=== PATIENT | male | born 1955 | race Caucasian/White ===

== ENCOUNTER 2017-04-06 22:22 | Observation (INO) ==
[2017-04-07] MEDS ORDERED: Naloxone 0.4 MG/ML INJ IVP PRN (02:36)
[2017-04-07] MEDS ORDERED: Albuterol 2.5 MG/3 ML NEBULIZER IH PRN (02:37)
--- NOTE | 2017-04-07 02:45 | Internal Med History&Physical ---
Date of Encounter: 04/07/17 Time of Encounter: 02:43 Assessment and Plan (1) Weakness Current visit: Yes Status: Acute PT/OT eval no focal deficits, will continue to exercise and monitor closely further management pending above eval (2) Acute bronchitis with COPD Current visit: Yes Status: Acute IV azithromycin, Duonebs therapy pulse ox observe for improvement (3) GERD (gastroesophageal reflux disease) Current visit: Yes Status: Acute PPI Qualifiers: Esophagitis presence: without esophagitis Qualified Code(s): K21.9 - Gastro -esophageal reflux disease without esophagitis (4) Dementia Current visit: Yes Status: Acute Qualifiers: Alzheimer's disease onset: late-onset Qualified Code(s): G30.1 - Alzheimer' s disease with late onset; F02.80 - Dementia in other diseases classified elsewhere without behavioral disturbance; F02.80 - Dementia in other diseases classified elsewhere without behavioral disturbance; F02.80 - Dementia in other diseases classified elsewhere without behavioral disturbance (5) Depression Current visit: Yes Status: Acute Qualifiers: Qualified Code(s): F32.9 - Major depressive disorder, single episode, unspecified Internal Medicine - H&P: HPI Chief complaint: weakness, congested History of present illness: Mr. Loco is a 61 year old male with a history of COPD, dementia who presents as a transfer from [facility] per family request. Chief complaint of weakness that is generalized and increasing congestion. At baseline he has been residing in [facility] for at least the last several years. He continues to be noncompliant and smokes at the shelter. He uses 3 L nasal cannula at baseline. Family reported approximately 1 week history of generalized weakness associated with intermittent confusion while at the the shelter. She fell backwards across the bed this past week. He was initially evaluated at [facility] 2 days ago with negative workup and was sent back to [facility] at the displeasure of his family. Since returning home, he continued to exhibit generalized weakness and had a close fall. Patient returned to [facility] was evaluated with plans to return home to shelter today. However his family was concerned and requested transfer to [place] for comprehensive care. Review of medical records at [facility] indicate: Negative stool occult blood Lactate 0.5 Troponin less than 0.056 Sodium 143, potassium 4.0, creatinine 0.84, total bilirubin 0.2, AST 17, ALP 24 WBC 10.1, platelets 338, hemoglobin 12.3 Rapid flu swab negative EKG personally reviewed with rate 83, right bundle branch block with no prior to compare against - of note patient is not complaining of chest pain ABG performed with pH 7.39, PCO2 77, PO2 79, bicarbonate 46.6 Past Med Surg Social Fam HX - Past Medical History Medical history: COPD, GERD, hypertension, SVT, TIA Psychiatric history: anxiety, depression - Social History Smoking Status: Former smoker Alcohol use: none Drug use: none Internal Medicine - H&P: Meds Aspirin [Lo-Dose Aspirin EC] 81 mg PO DAILY 04/07/17 [History] Bacitracin 1 TP DAILY 04/07/17 [History] Docusate [Colace] 100 mg PO BID 04/07/17 [History] Escitalopram [Lexapro] 10 mg PO HS 04/07/17 [History] Fluticasone/Salmeterol [Advair 250-50 Diskus] 1 each IH BID 04/07/17 [History] Guaifenesin [Mucinex] 600 mg PO Q12HR 04/07/17 [History] Losartan [Cozaar] 50 mg PO DAILY 04/07/17 [History] OLANZapine [Zyprexa] 5 mg PO HS 04/07/17 [History] Oxycodone HCl/Acetaminophen [Percocet 7.5-325 mg Tablet] 1 each PO Q6HR PRN 01/12 [History] Pantoprazole Sodium [Protonix] 40 mg PO HS 04/07/17 [History] Triamcinolone Acet 0.1% CRM [Kenalog] 1 appl TP DAILY PRN 04/07/17 [History] Ventolin Hfa 2 puff IH Q4HR PRN 04/07/17 [History] clonazePAM [Clonazepam] 1 mg PO TID 04/07/17 [History] 3 Allergy/AdvReac Type Severity Reaction Status Date / Time ipratropium [From Atrovent] Allergy unknown Verified 04/07/17 01:45 All Systems PM: A 10-system review of systems was performed and is negative for pertinent findings except as documented above in the HPI. Review of systems: ROS 14 point review of systems reviewed as best as possible given presentation. Pertinent positive or negative as per HPI or otherwise reviewed as negative - Constitutional Vitals: Temp Pulse Resp BP Pulse Ox 100.4 F H 101 16 127/81 94 04/07/17 02:29 04/07/17 02:29 04/07/17 02:29 04/07/17 02:29 04/07/17 02:29 Exam: General - AAO x 3 Psych - Appropriate affect/speech. No agitation Eyes - TOMMY. Eye lids intact. No scleral icterus Neuro - No gross peripheral or central neuro deficits on inspection Heart - Sinus. RRR. S1 and S2 present. No added HS/murmurs appreciated. No elevated JVD appreciated. Lung - Decreased air entry b/l, No crackles, scant wheeze appreciated GI - Soft, non-tender. No hepatosplenomegaly/ascites. BS+ - No CVA/suprapubic tenderness or palpable bladder distension Skin - Intact. No rash/petechiae/ecchymosis. Warm extremities
[2017-04-07 03:57] LABS: Bilirubin,Urine Negative (Negative); Blood,Urine Moderate (Negative); Clarity,Urine Clear (Clear); Color,Urine Yellow (Yellow); Glucose,Urine (UA) Normal (Normal); Ketones,Urine Negative (Negative); Leukocyte Esterase,Urine Negative (Negative); Nitrite,Urine Negative (Negative); Protein,Urine Negative (Neg-Trace); Specific Gravity,Urine 1.005 (1.010-1.025); Urobilinogen,Urine Normal (Normal)
[2017-04-07 04:00] LABS: Bacteria,Urine None Seen per hpf (None-Few); Hyaline Casts,Urine None Seen per lpf (None-Few); RBC,Urine 0-3 per hpf (0-3); Squamous Epithelial Cell,Urine Few per lpf (None-Few); WBC,Urine 0-3 per hpf (0-3)
[2017-04-07] MEDS: Albuterol 2.5 MG/3 ML NEBULIZER IH SCH ×4 (04:06→22:12)
[2017-04-07 04:46] LABS: Hemoglobin 11.8 g/dL (12.9-16.9)
[2017-04-07 04:47] LABS: Basophils % 0.3 %; Hematocrit 40.6 % (37.5-50.1); Immature Granulocytes % 1.7 % (0-4); Lymphocytes # 1.1 K/mcL (0.6-4.6); Lymphocytes % 11.1 %; Mean Corpuscular HGB Conc 29.1 g/dL (31.6-35.5); Mean Corpuscular Hemoglobin 24.5 pg (28.0-33.3); Mean Corpuscular Volume 84.4 fL (83.0-100.0); Mean Platelet Volume 9.2 fL (9.4-12.4); Monocytes # 0.1 K/mcL (0.0-1.3); Monocytes % 1.1 %; Neutrophils # 8.7 K/mcL (1.6-8.9); Platelet Count 356 K/mcL (140-400); Red Blood Count 4.81 M/mcL (4.19-5.50); Red Cell Distribution Width 13.6 % (11.5-14.5); Segmented Neutrophils % 85.8 %
[2017-04-07 04:58] LABS: Adenovirus Not Detected (Not Detect); Bordetella Pertussis Not Detected (Not Detect); Chlamydophila pneumoniae Not Detected (Not Detect); Coronavirus 229E Not Detected (Not Detect); Coronavirus HKU1 Not Detected (Not Detect); Coronavirus NL63 Not Detected (Not Detect); Coronavirus OC43 Not Detected (Not Detect); Human Metapneumovirus Not Detected (Not Detect); Human Rhinovirus/Enterovirus Not Detected (Not Detect); Influenza A Subtype 2009 H1 Not Detected (Not Detect); Influenza A Untypeable Not Detected (Not Detect); Influenza B Not Detected (Not Detect); Mycoplasma pneumoniae Not Detected (Not Detect); Parainfluenza Virus 1 Not Detected (Not Detect); Parainfluenza Virus 2 Not Detected (Not Detect); Parainfluenza Virus 3 Not Detected (Not Detect); Parainfluenza Virus 4 Not Detected (Not Detect); Respiratory Syncytial Virus Not Detected (Not Detect)
[2017-04-07 05:15] LABS: Alanine Aminotransferase 15 Units/L (7-52); Albumin 4.1 g/dL (3.5-5.7); Albumin/Globulin Ratio 1.1 (1.1-2.2); Alkaline Phosphatase 95 Units/L (34-104); Aspartate Amino Transferase 11 Units/L (13-39); BUN/Creatinine Ratio 13 (6-26); Bilirubin,Total 0.3 mg/dL (0.3-1.0); Blood Urea Nitrogen 9 mg/dL (8-23); Calcium 9.7 mg/dL (8.6-10.3); Carbon Dioxide 38 mEq/L (23-29); Chloride 98 mEq/L (98-107); Globulin 3.9 g/dL (2.4-3.5); Glucose 129 mg/dL (70-105); Magnesium 2.4 mg/dL (1.6-2.6); Osmolality,Calculated 296 (280-300); Potassium 4.2 mEq/L (3.5-5.1); Sodium 143 mEq/L (136-145); eGFR For African Americans > 60 (> 60); eGFR For Non-African Americans > 60 (> 60)
[2017-04-07 05:25] LABS: Thyroid Stimulating Hormone 0.146 mcIU/mL (0.340-5.600)
[2017-04-07 05:37] LABS: Platelet Estimate Normal (Normal)
[2017-04-07 05:38] LABS: Hypochromasia Present (Not Present)
[2017-04-07] MEDS: clonazePAM 1 MG TABLET PO PRN ×2 (08:42→15:37)
[2017-04-07] MEDS: *HR* OxyCODONE/APAP 7.5/325 TABLET PO PRN ×3 (08:42→22:01)
[2017-04-07] MEDS: Azithromycin 500 MG in D5% in Water 250 ML IVPB SCH (08:42)
[2017-04-07] MEDS: Aspirin Enteric Coated 81 MG Tablet PO SCH (08:42)
[2017-04-07] MEDS: Budesonide/Formoterol 80/4.5 MDI IH SCH ×2 (10:30→22:12)
--- NOTE | 2017-04-07 13:44 | Event Note ---
Date of Encounter: 04/07/17 Time of Encounter: 13:32 1. Acute bronchitis with COPD: cont IV azithromycin. 2. Weakness: lives at ECF, details unclear but rarely with increasing weakness. PT/OT consult. Supportive care 3. GERD: cont home PPI 4. Dementia: per hx. Baseline mentation unknown. No family at bedside for collateral. Continue supportive care. 5. DVT prophylaxis: Heparin
[2017-04-07] MEDS: *HR* Heparin 5,000 UNIT/ML VIAL SQ SCH ×2 (13:54→22:09)
[2017-04-07] MEDS: OLANZapine 5 MG TAB.RAPDIS PO SCH (20:39)
[2017-04-08] MEDS: Albuterol 2.5 MG/3 ML NEBULIZER IH SCH ×4 (03:15→22:20)
[2017-04-08] MEDS: *HR* Heparin 5,000 UNIT/ML VIAL SQ SCH ×3 (06:02→20:49)
[2017-04-08] MEDS: *HR* OxyCODONE/APAP 7.5/325 TABLET PO PRN ×2 (06:04→12:38)
[2017-04-08] MEDS: Azithromycin 500 MG in D5% in Water 250 ML IVPB SCH (08:09)
[2017-04-08] MEDS: Aspirin Enteric Coated 81 MG Tablet PO SCH (08:10)
[2017-04-08] MEDS: clonazePAM 1 MG TABLET PO PRN (08:12)
[2017-04-08] MEDS: Budesonide/Formoterol 80/4.5 MDI IH SCH ×2 (09:35→22:09)
--- NOTE | 2017-04-08 12:17 | Internal Med Progress Note ---
Date of Encounter: 04/08/17 Time of Encounter: 12:11 - Constitutional Vitals: Temp Pulse Resp BP Pulse Ox 97.7 F 98 20 109/71 97 04/08/17 11:56 04/08/17 11:56 04/08/17 11:56 04/08/17 11:56 04/08/17 11:56 Internal Medicine: Result - Labs CBC & Chem 7: 04/07/17 04:31 04/07/17 04:31 - VTE Documentation of Mechanical Device: Intermittent pneumatic compression device Consult Discharge Plan - Plan Referrals: NONE,PCP [Primary Care Provider] -
[2017-04-08] MEDS ORDERED: Artificial Tears SOLN 15 ML BOTTLE OP PRN (15:33)
[2017-04-08] MEDS: clonazePAM 1 MG TABLET PO SCH ×2 (16:14→20:48)
--- NOTE | 2017-04-08 17:44 | Internal Med Progress Note ---
Date of Encounter: 04/08/17 Time of Encounter: 11:45 - Assessment and plan (1) Near syncope Current Visit: Yes Status: Acute Assessment and plan: niece reports 2 episodes of near syncope at [facility]. OSH head CT non-acute. Etiology unknown at this time. Appears back to baseline. Brain MRI, echo and orthostatics pending (2) Acute bronchitis with COPD Current Visit: Yes Status: Acute Assessment and plan: suspected. Cont Azithromycin (3) Dementia Current Visit: Yes Status: Acute Assessment and plan: per hx. Appears at baseline Qualifiers: Alzheimer's disease onset: late-onset Qualified Code(s): G30.1 - Alzheimer' s disease with late onset; F02.80 - Dementia in other diseases classified elsewhere without behavioral disturbance; F02.80 - Dementia in other diseases classified elsewhere without behavioral disturbance; F02.80 - Dementia in other diseases classified elsewhere without behavioral disturbance (4) DVT prophylaxis Current Visit: Yes Status: Acute Assessment and plan: heparin - Subjective Interval history: Seen and examined at bedside; patient is new to me. Information obtained from chart review and patient report. He is alert and oriented X 4 but forgetful. Says he remembers being confused but not sure of circumstances. No CP, no SOB - Constitutional Vitals: Temp Pulse Resp BP Pulse Ox 98.4 F 97 16 118/73 96 04/08/17 16:09 04/08/17 16:09 04/08/17 16:15 04/08/17 16:15 04/08/17 16:15 General appearance: Present: A&O X 3 - Head Head exam: Present: atraumatic, normocephalic - Eye Eye exam: Present: PERRL, conjuntiva pink, sclera anicteric Pupils: Present: PERRL - Neck Neck exam general surgery: Present: supple, trachea midline. Absent: lymphadenopathy - Respiratory Respiratory exam: Present: CTAB. Absent: accessory muscle use, rales, rhonchi, wheezes - Cardiovascular Cardiovascular exam: Present: RRR, +S1, +S2. Absent: diastolic murmur, gallop, rubs, systolic murmur - GI/Abdominal GI/Abdominal exam: Present: normal bowel sounds, soft, no peritoneal signs. Absent: distended, tenderness - Extremities Exam Extremities exam: Present: warm, radial pulses palpable and symmetrical. Absent : calf tenderness, cyanotic, pedal edema - Neurological Exam Neurological exam: Present: CN II-XII intact, oriented X3, no focal deficits. Absent: pronater drift, facial droop, speech deficit - Skin Skin exam: Present: dry, intact Internal Medicine: Result - Labs CBC & Chem 7: 04/07/17 04:31 04/07/17 04:31 - VTE Documentation of Mechanical Device: Intermittent pneumatic compression device Consult Discharge Plan - Plan Referrals: NONE,PCP [Primary Care Provider] -
[2017-04-08] MEDS: OLANZapine 5 MG TAB.RAPDIS PO SCH (20:49)
[2017-04-09] MEDS: Albuterol 2.5 MG/3 ML NEBULIZER IH SCH ×2 (03:30→11:34)
[2017-04-09] MEDS: clonazePAM 1 MG TABLET PO SCH ×2 (04:47→09:59)
[2017-04-09] MEDS: *HR* Heparin 5,000 UNIT/ML VIAL SQ SCH (04:48)
[2017-04-09] MEDS: *HR* OxyCODONE/APAP 7.5/325 TABLET PO PRN ×2 (04:52→12:56)
[2017-04-09 05:17] LABS: Hematocrit 35.4 % (37.5-50.1); Hemoglobin 10.6 g/dL (12.9-16.9); Mean Corpuscular HGB Conc 29.9 g/dL (31.6-35.5); Mean Corpuscular Hemoglobin 25.1 pg (28.0-33.3); Mean Corpuscular Volume 83.7 fL (83.0-100.0); Mean Platelet Volume 9.4 fL (9.4-12.4); Platelet Count 317 K/mcL (140-400); Red Blood Count 4.23 M/mcL (4.19-5.50); Red Cell Distribution Width 14.3 % (11.5-14.5)
[2017-04-09 05:30] LABS: BUN/Creatinine Ratio 25 (6-26); Blood Urea Nitrogen 15 mg/dL (8-23); Carbon Dioxide 33 mEq/L (23-29); Chloride 104 mEq/L (98-107); Glucose 98 mg/dL (70-105); Osmolality,Calculated 297 (280-300); Potassium 3.8 mEq/L (3.5-5.1); Sodium 143 mEq/L (136-145); eGFR For African Americans > 60 (> 60); eGFR For Non-African Americans > 60 (> 60)
[2017-04-09] MEDS ORDERED: Azithromycin 500 MG VIAL IVPB ONE (07:28)
[2017-04-09] MEDS: Aspirin Enteric Coated 81 MG Tablet PO SCH (07:32)
[2017-04-09] MEDS: Azithromycin 500 MG in D5% in Water 250 ML IVPB SCH (07:34)
[2017-04-09] MEDS ORDERED: Furosemide 20 MG TABLET PO SCH (09:00)
--- NOTE | 2017-04-09 09:06 | Discharge Summary ---
Date of Encounter: 04/09/17 Time of Encounter: 08:50 - Discharge Diagnosis (1) Acute bronchitis with COPD Priority: Primary Status: Acute Comments: Pt states that he feels better today and is breathing better. Continue Azithromycin at ECF to finish course, will be complete on 04/11. Urine strep pneumo and legionella negative. Lungs diminished with faint wheezing in bilateral posterior bases. No distress. Continue 02 at ECF. He is at his baseline use. Pt continues to smoke at ECF. (2) Dementia Priority: Secondary Status: Chronic Comments: Chronic. Patient has returned to baseline. Continue to monitor for safety. Qualifiers: Alzheimer's disease onset: late-onset Qualified Code(s): G30.1 - Alzheimer' s disease with late onset; F02.81 - Dementia in other diseases classified elsewhere with behavioral disturbance; F02.81 - Dementia in other diseases classified elsewhere with behavioral disturbance; F02.81 - Dementia in other diseases classified elsewhere with behavioral disturbance (3) GERD (gastroesophageal reflux disease) Priority: Secondary Status: Chronic Comments: Chronic. Patient denies any symptoms. Continue home medications. Qualifiers: Esophagitis presence: without esophagitis Qualified Code(s): K21.9 - Gastro -esophageal reflux disease without esophagitis (4) Near syncope Priority: Secondary Status: Acute Comments: Family reported 2 episodes of near syncope at F. Most likely due to SOB. Pt with tachycardia and tachypnea on admission, pt also admitted for COPD exacerbation. Pt had head CT at OSH that was negative for acute infarct. Pt has returned to baseline and denies dizziness or lightheadedness, no chest pain or SOB above his normal baseline. Labs are stable and WNL. Echo with LVEF 55-60%, Mildly dilated RV with normal appearing functioning, valves not well visualized. Head CT negative from [facility]. Orthostatic vital signs negative. Continiue to monitor for safety and hydration status, continue to wear 02 at normal home level. (5) Weakness Priority: Secondary Status: Acute Comments: Most likely due to COPD exacerbation and physical deconditioning. Pt was evaluated by PT and OT, recommend PT/OT daily at [facility]. Monitor for safety (6) DVT prophylaxis Priority: Secondary Status: Acute Comments: Heparin SQ (7) Chronic respiratory failure Priority: Secondary Status: Chronic Comments: Pt is at his baseline 02 use, 3L/NC. Qualifiers: Respiratory failure complication: unspecified whether with hypoxia or hypercapnia Qualified Code(s): J96.10 - Chronic respiratory failure, unspecified whether with hypoxia or hypercapnia - Discharge Medications Prescriptions: Azithromycin [Zithromax] 250 mg PO Q24H #3 tablet clonazePAM [Klonopin] 2 mg PO Q6H 1 Days #4 tablet Home Medications: Albuterol Sulfate [Ventolin Hfa] 2 puff IH Q6H PRN 04/07/17 [History] Aspirin [Lo-Dose Aspirin EC] 81 mg PO DAILY 04/07/17 [History] Docusate [Colace] 200 mg PO BID 04/07/17 [History] Escitalopram [Lexapro] 10 mg PO HS 04/07/17 [History] Fluticasone/Salmeterol [Advair 250-50 Diskus] 1 each IH BID 04/07/17 [History] Guaifenesin [Mucinex] 600 mg PO Q12HR 04/07/17 [History] Losartan [Cozaar] 50 mg PO DAILY 04/07/17 [History] OLANZapine [Zyprexa] 5 mg PO HS 04/07/17 [History] Oxycodone HCl/Acetaminophen [Percocet 7.5-325 mg Tablet] 2 tab PO Q6HR PRN 04/07 [History] Triamcinolone Acet 0.1% CRM [Kenalog] 1 appl TP DAILY PRN 04/07/17 [History] Albuterol Neb [Proventil Neb] 2.5 mg IH Q6H PRN 04/08/17 [History] Bisacodyl [Woman's Laxative] 15 mg PO 2XW 04/08/17 [History] Fluticasone Propionate Nasal [Flonase] 1 spr NS DAILY 04/08/17 [History] Furosemide [Lasix] 20 mg PO DAILY 04/08/17 [History] Guaifenesin [Adult Tussin Chest Congestion] 200 mg PO Q6H PRN 04/08/17 [History] Loratadine [Allergy Relief] 10 mg PO DAILY 04/08/17 [History] Metoprolol [Lopressor] 25 mg PO BID 04/08/17 [History] Nystatin Cream [Mycostatin Cream] 1 appl TP BID 04/08/17 [History] Omeprazole [PriLOSEC] 20 mg PO DAILY 04/08/17 [History] Ondansetron HCl [Zofran] 4 mg PO Q6H PRN 04/08/17 [History] Polyvinyl Alcohol [Artificial Tears] 2 drop OP Q4H PRN 04/08/17 [History] Roflumilast [Daliresp] 500 mcg PO DAILY 04/08/17 [History] Azithromycin [Zithromax] 250 mg PO Q24H #3 tablet 04/09/17 [Rx] clonazePAM [Klonopin] 1 mg PO TID PRN 1 Days #3 tablet 04/09/17 [Rx] clonazePAM [Klonopin] 2 mg PO Q6H 1 Days #4 tablet 04/09/17 [Rx] Allergies/Adverse Reactions: 3 Allergy/AdvReac Type Severity Reaction Status Date / Time ipratropium [From Atrovent] Allergy unknown Verified 04/07/17 01:45 Procedures/tests Complete & Pending: Procedures Performed prior 72 hours Category Date Time Status EV limited echocardiogram Routine Y 04/09/17 15:24 Completed Date of admission: 04/07/17 00:15 Primary care physician: PCP NONE Consults: 04/07/17 02:54 Consult to Occupational Therapy [CONS] Routine Comment: Evaluate, develop and implement POC Reason for Consult: ambulate and assess Consult to Physical Therapy [CONS] Routine Comment: Evaluate, develop and implement POC Reason for Consult: ambulate assess for placement need 04/08/17 09:24 Consult to Invasive Line Access Team [CONS] Routine Reason for Consult: IV excess Line Type: EPIV Time Notified: 09:25 Call Completed: Yes Discharging clinician: Skye Merrill Anticipated date of discharge: 04/09/17 - Patient Status Disposition: Transfer SNF Condition: Good Functional capacity at discharge: uses cane/walker Overall status at discharge: patient is progressing back to baseline - Discharge Instructions Follow Up With: NONE,PCP [Primary Care Provider] - - Diet and Activity Activity: as per physical therapy Diet: advance to your usual diet Hospital course: Mr. Loco is a 61 year old male with past medical history of COPD, GERD, dementia, smoking. Presented to the emergency department from detention in [facility] after being discharged from local hospital. Family reports 2 recent episodes of near syncope and increasing weakness and shortness of breath. Imaging was negative for any acute processes including head CT and chest x-ray. The patient has been treated with IV Rocephin for COPD exacerbation, he will continue by mouth Zithromax after discharge. Patient is resting easily on his normal baseline oxygen use of 3 L. He states that he feels considerably better than he did previously. He is alert and awake and answers questions appropriately. He has no leukocytosis or fever, no tachycardia, he is normotensive. All other labs are within normal limits. Patient does have a TSH of 0.146 which is low, he will need to follow up for repeat labs at the [facility] after he is no longer acutely ill. Patient is stable and appropriate for discharge. Time spent discussing smoking cessation with patient: 3 to 10 minutes - Time Spent with Patient Total time spent providing and/or coordinating discharge services: - Constitutional Vitals: Temp Pulse Resp BP Pulse Ox 97.6 F 57 16 116/69 97 04/09/17 07:23 04/09/17 07:29 04/09/17 07:23 04/09/17 07:29 04/09/17 07:23 General appearance: Present: cooperative, A&O X 3, pleasant, no acute distress, answers questions appropriately - Head Head exam: Present: atraumatic, normal inspection, normocephalic - Eye Eye exam: Present: normal appearance, conjuntiva pink, sclera anicteric - Neck Neck exam general surgery: Present: normal inspection, supple, trachea midline. Absent: tenderness - Respiratory Respiratory exam: Present: decreased breath sounds, CTAB. Absent: accessory muscle use, rales, respiratory distress, rhonchi, wheezes - Cardiovascular Cardiovascular exam: Present: RRR, +S1, +S2. Absent: diastolic murmur, gallop, rubs, systolic murmur - GI/Abdominal GI/Abdominal exam: Present: normal bowel sounds, soft. Absent: distended, hepatomegaly, tenderness - Extremities Exam Extremities exam: Present: normal capillary refill, normal inspection, warm, radial pulses palpable and symmetrical. Absent: calf tenderness, cyanotic, pedal edema - Neurological Exam Neurological exam: Present: alert, oriented X3, no focal deficits. Absent: facial droop, speech deficit - Skin Skin exam: Present: dry, intact, normal color, warm. Absent: rash - VTE Documentation of Mechanical Device: Intermittent pneumatic compression device
[2017-04-09] MEDS ORDERED: GuaiFENesin Liq 200 MG/10 ML UDC PO PRN (09:10)
[2017-04-09] MEDS ORDERED: Triamcinolone Acet 0.1% CRM 15 GM TUBE TP PRN (09:10)
[2017-04-09] MEDS ORDERED: Fluticasone Propionate Nasal 50 MCG/SPRAY BOTTLE NS SCH (09:15)
[2017-04-09] MEDS ORDERED: Loratadine 10 MG TABLET PO SCH (09:15)
[2017-04-09] MEDS ORDERED: (Roflumilast [Daliresp] 500 MCG) PO SCH (09:15)
[2017-04-09] MEDS ORDERED: Nystatin Cream 15 GM TUBE TP SCH (09:15)
[2017-04-09 11:06] VITALS: BP 108/69
[2017-04-09] MEDS: Budesonide/Formoterol 80/4.5 MDI IH SCH (11:34)
--- NOTE | 2017-04-09 13:21 | Physician Discharge Referral ---
ExtendedCare Referral Info Transfer To: [facility] Provider in Charge after Transfer: PCP Institutional Level of Care: Intermediate - Diagnosis (1) Acute bronchitis with COPD Priority: Primary Status: Acute (2) Dementia Priority: Secondary Status: Chronic (3) GERD (gastroesophageal reflux disease) Priority: Secondary Status: Chronic (4) Near syncope Priority: Secondary Status: Acute (5) Weakness Priority: Secondary Status: Acute (6) DVT prophylaxis Priority: Secondary Status: Acute (7) Chronic respiratory failure Status: Chronic - Transfer Medications Prescriptions: Azithromycin [Zithromax] 250 mg PO Q24H #3 tablet clonazePAM [Klonopin] 2 mg PO Q6H 1 Days #4 tablet Home Medications: Albuterol Sulfate [Ventolin Hfa] 2 puff IH Q6H PRN 04/07/17 [History] Aspirin [Lo-Dose Aspirin EC] 81 mg PO DAILY 04/07/17 [History] Docusate [Colace] 200 mg PO BID 04/07/17 [History] Escitalopram [Lexapro] 10 mg PO HS 04/07/17 [History] Fluticasone/Salmeterol [Advair 250-50 Diskus] 1 each IH BID 04/07/17 [History] Guaifenesin [Mucinex] 600 mg PO Q12HR 04/07/17 [History] Losartan [Cozaar] 50 mg PO DAILY 04/07/17 [History] OLANZapine [Zyprexa] 5 mg PO HS 04/07/17 [History] Oxycodone HCl/Acetaminophen [Percocet 7.5-325 mg Tablet] 2 tab PO Q6HR PRN 04/07 [History] Triamcinolone Acet 0.1% CRM [Kenalog] 1 appl TP DAILY PRN 04/07/17 [History] Albuterol Neb [Proventil Neb] 2.5 mg IH Q6H PRN 04/08/17 [History] Bisacodyl [Woman's Laxative] 15 mg PO 2XW 04/08/17 [History] Fluticasone Propionate Nasal [Flonase] 1 spr NS DAILY 04/08/17 [History] Furosemide [Lasix] 20 mg PO DAILY 04/08/17 [History] Guaifenesin [Adult Tussin Chest Congestion] 200 mg PO Q6H PRN 04/08/17 [History] Loratadine [Allergy Relief] 10 mg PO DAILY 04/08/17 [History] Metoprolol [Lopressor] 25 mg PO BID 04/08/17 [History] Nystatin Cream [Mycostatin Cream] 1 appl TP BID 04/08/17 [History] Omeprazole [PriLOSEC] 20 mg PO DAILY 04/08/17 [History] Ondansetron HCl [Zofran] 4 mg PO Q6H PRN 04/08/17 [History] Polyvinyl Alcohol [Artificial Tears] 2 drop OP Q4H PRN 04/08/17 [History] Roflumilast [Daliresp] 500 mcg PO DAILY 04/08/17 [History] Azithromycin [Zithromax] 250 mg PO Q24H #3 tablet 04/09/17 [Rx] clonazePAM [Klonopin] 1 mg PO TID PRN 1 Days #3 tablet 04/09/17 [Rx] clonazePAM [Klonopin] 2 mg PO Q6H 1 Days #4 tablet 04/09/17 [Rx] Allergies/Adverse Reactions: 3 Allergy/AdvReac Type Severity Reaction Status Date / Time ipratropium [From Atrovent] Allergy unknown Verified 04/07/17 01:45 - Respiratory Orders Oxygen / L per min (3L/min via n/c.) Smoking Cessation: Smoking cessation has been advised. For more information, call the [place] Tobacco Quit Line at 4-283-XPMD-NOW. - Lab Orders Lab Orders: CBC, U/A, Fil[address] 17, CXR yearly - Ancillary Orders May use pressure relief devices daily prn, May go on SUMMER w/family/respon green party w /meds at nurse discretion PRN, May consult with Dentist, Cement Loader, Administrative Project Coordinator PRN - Advance Directives Code Status: Full Code - Mobility Orders Chair, Ambulate - Rehabiliation Orders Rehab Potential: Fair Rehab Orders: ROM Exercises, Evaluation for Physical Therapy, Evaluation for Occupational Therapy - Treatments Skin tear care topically daily PRN per policy, May check for fecal impaction rectally daily PRN, Fleet enema rectally every other day PRN cleansing purposes - Diet Orders Regular CERTIFICATION: I certify that the transfer of the above named patient to an Extended Care Facility is necessary for the continuing treatment of the diagnosis listed. The above information is true and accurate reflection of patient's current condition. Confidential - Redisclosure prohibited without a patient's written consent.
== END 2017-04-09 14:16 ==
LOC: 3BNU
PROVIDERS: ADMIT Internal Medicine Hematology & Oncology; ATTEND Registered Nurse

== ENCOUNTER 2019-05-07 13:23 | Inpatient (IN) ==
[~2019-05-07 13:23] MED LIST: Aminoglycoside Consult 1 EACH MC ONE
[2019-05-07] MEDS ORDERED: Naloxone 0.4 MG/ML INJ IVP PRN (17:05)
[2019-05-07] MEDS ORDERED: Albuterol 2.5 MG/3 ML NEBULIZER IH PRN (17:12)
[2019-05-07 17:19] LABS: ABG Base Excess 14 mEq/L (-2 to 3); ABG HCO3 45 mEq/L (21-27); ABG Oxygen Saturation 97 % (95-98); ABG PCO2 95 mmHg (35-45); ABG PH 7.28 pH Units (7.32-7.45); ABG PO2 107 mmHg (85-104); ABG TCO2 48 mEq/L (20-26)
[2019-05-07] MEDS ORDERED: 0.9 % Sodium Chloride 1,000 ML IV ONE (17:31)
[2019-05-07 18:05] LABS: Basophils % 0.3 %
[2019-05-07 18:06] LABS: Hematocrit 42.2 % (37.5-50.1); Hemoglobin 11.8 g/dL (12.9-16.9); Immature Granulocytes % 2.5 % (0-4); Lymphocytes # 0.2 K/mcL (0.6-4.6); Lymphocytes % 1.9 %; Mean Corpuscular Hemoglobin 25.4 pg (28.0-33.3); Mean Corpuscular Volume 90.8 fL (83.0-100.0); Monocytes # 1.4 K/mcL (0.0-1.3); Monocytes % 13.5 %; Neutrophils # 8.5 K/mcL (1.6-8.9); Platelet Count 226 K/mcL (140-400); Red Blood Count 4.65 M/mcL (4.19-5.50); Red Cell Distribution Width 16.3 % (11.5-14.5); Segmented Neutrophils % 81.8 %; White Blood Count 10.4 K/mcL (4.3-11.1)
[2019-05-07 19:01] LABS: Anisocytosis 1+ (Not Present); Hypochromasia Present (Not Present)
[2019-05-07 19:02] LABS: Platelet Estimate Normal (Normal); Stomatocytes 2+ (Not Present)
[2019-05-07] MEDS: Albuterol 2.5 MG/3 ML NEBULIZER IH SCH (19:56)
[2019-05-07 20:50] LABS: ABG Base Excess 15 mEq/L (-2 to 3); ABG HCO3 46 mEq/L (21-27); ABG Oxygen Saturation 88 % (95-98); ABG PCO2 90 mmHg (35-45); ABG PH 7.32 pH Units (7.32-7.45); ABG PO2 63 mmHg (85-104); ABG TCO2 48 mEq/L (20-26); Blood Gas Modality AVAPS; Blood Gas VT 550 cc
[2019-05-07] MEDS: Gabapentin 300 MG CAPSULE PO SCH (20:52)
[2019-05-07] MEDS: Metoprolol XL (24 HR) Succ 25 MG TAB.ER.24H PO SCH (20:52)
[2019-05-07] MEDS: *HR* Heparin 5,000 UNIT/ML VIAL SQ SCH (20:52)
[2019-05-07] MEDS: traZODone 50 MG TABLET PO PRN (21:57)
[2019-05-07] MEDS: clonazePAM 1 MG TABLET PO SCH (22:13)
[2019-05-07] MEDS: OLANZapine 10 MG TAB.RAPDIS PO SCH (22:13)
[2019-05-07] MEDS: Acetaminophen 325 MG TABLET PO PRN (22:33)
[2019-05-07] MEDS: Budesonide/Formoterol 160/4.5 1 PUFF INH IH SCH (22:47)
[2019-05-07] MEDS: Piperacillin/Tazobactam 3.375 GM in 0.9 % Sodium Chloride Mini Bag 100 ML IVPB SCH (23:59)
[2019-05-08] MEDS: Albuterol 2.5 MG/3 ML NEBULIZER IH SCH ×2 (00:46→03:46)
[2019-05-08] MEDS ORDERED: *HR* Metoprolol 5 MG/5 ML VIAL IVP ONE ×3 (03:59→05:20)
[2019-05-08 04:44] LABS: ABG Base Excess 18 mEq/L (-2 to 3); ABG HCO3 49 mEq/L (21-27); ABG Oxygen Saturation 88 % (95-98); ABG PCO2 92 mmHg (35-45); ABG PH 7.34 pH Units (7.32-7.45); ABG PO2 64 mmHg (85-104); ABG TCO2 > 50 mEq/L (20-26)
[2019-05-08] MEDS: *HR* Heparin 5,000 UNIT/ML VIAL SQ SCH ×3 (05:28→20:37)
[2019-05-08] MEDS ORDERED: MethylPREDNISolone 40 MG/ML VIAL IVP SCH (06:00)
[2019-05-08 07:17] LABS: Hemoglobin 11.7 g/dL (12.9-16.9); Immature Granulocytes % 1.7 % (0-4); Red Cell Distribution Width 16.5 % (11.5-14.5)
[2019-05-08 07:18] LABS: Alanine Aminotransferase 69 Units/L (7-52); Albumin 3.3 g/dL (3.5-5.7); Albumin/Globulin Ratio 1.3 (1.1-2.2); Alkaline Phosphatase 56 Units/L (34-104); Aspartate Amino Transferase 36 Units/L (13-39); BUN/Creatinine Ratio 27 (6-26); Bilirubin,Total 0.3 mg/dL (0.3-1.0); Blood Urea Nitrogen 16 mg/dL (8-23); Calcium 8.7 mg/dL (8.6-10.3); Carbon Dioxide 41 mEq/L (23-29); Chloride 96 mEq/L (98-107); Globulin 2.5 g/dL (2.4-3.5); Glucose 94 mg/dL (70-105); Osmolality,Calculated 291 (280-300); Potassium 4.3 mEq/L (3.5-5.1); Sodium 140 mEq/L (136-145); Total Protein 5.8 g/dL (6.4-8.9); eGFR For African Americans > 60 (> 60); eGFR For Non-African Americans > 60 (> 60)
[2019-05-08 07:19] LABS: Basophils % 0.2 %; Hematocrit 41.3 % (37.5-50.1); Immature Platelets 2.6 % (1.1-6.1); Lymphocytes # 0.5 K/mcL (0.6-4.6); Lymphocytes % 5.6 %; Mean Corpuscular HGB Conc 28.3 g/dL (31.6-35.5); Mean Corpuscular Hemoglobin 24.8 pg (28.0-33.3); Mean Corpuscular Volume 87.5 fL (83.0-100.0); Mean Platelet Volume 9.7 fL (9.4-12.4); Monocytes # 1.1 K/mcL (0.0-1.3); Monocytes % 12.2 %; Neutrophils # 7.2 K/mcL (1.6-8.9); Platelet Count 198 K/mcL (140-400); Red Blood Count 4.72 M/mcL (4.19-5.50); Segmented Neutrophils % 80.3 %
[2019-05-08 07:53] LABS: Anisocytosis 1+ (Not Present); Hypochromasia Present (Not Present); Platelet Estimate Normal (Normal)
[2019-05-08] MEDS: Gabapentin 300 MG CAPSULE PO SCH ×3 (08:17→20:38)
[2019-05-08] MEDS: clonazePAM 1 MG TABLET PO SCH ×5 (08:17→21:01)
[2019-05-08] MEDS: Piperacillin/Tazobactam 3.375 GM in 0.9 % Sodium Chloride Mini Bag 100 ML IVPB SCH ×2 (08:17→15:52)
[2019-05-08] MEDS: Metoprolol XL (24 HR) Succ 25 MG TAB.ER.24H PO SCH (08:17)
[2019-05-08] MEDS ORDERED: predniSONE 20 MG TABLET PO SCH (09:00)
[2019-05-08] MEDS ORDERED: levoFLOXacin 750 MG/150 ML 750 MG/150 ML BAG IVPB SCH (09:00)
[2019-05-08] MEDS: Budesonide/Formoterol 160/4.5 1 PUFF INH IH SCH ×2 (09:03→21:51)
[2019-05-08] MEDS: methylPREDNISolone 125 MG/2 ML VIAL IVP SCH ×2 (10:32→15:52)
[2019-05-08 10:53] LABS: ABG Base Excess 18 mEq/L (-2 to 3); ABG HCO3 49 mEq/L (21-27); ABG Oxygen Saturation 95 % (95-98); ABG PCO2 94 mmHg (35-45); ABG PH 7.32 pH Units (7.32-7.45); ABG PO2 87 mmHg (85-104); ABG TCO2 > 50 mEq/L (20-26)
[2019-05-08] MEDS: Levalbuterol Neb 1.25 MG/3 ML IH SCH ×3 (11:26→21:51)
[2019-05-08] MEDS ORDERED: OLANZapine 10 MG VIAL IM ONE (13:30)
[2019-05-08] MEDS: OLANZapine 10 MG TAB.RAPDIS PO SCH (20:38)
[2019-05-09] MEDS: methylPREDNISolone 125 MG/2 ML VIAL IVP SCH ×4 (00:05→23:10)
[2019-05-09] MEDS: Piperacillin/Tazobactam 3.375 GM in 0.9 % Sodium Chloride Mini Bag 100 ML IVPB SCH ×5 (00:07→23:10)
[2019-05-09] MEDS: Levalbuterol Neb 1.25 MG/3 ML IH SCH ×3 (03:29→21:44)
[2019-05-09 04:46] LABS: ABG Base Excess 21 mEq/L (-2 to 3); ABG HCO3 54 mEq/L (21-27); ABG Oxygen Saturation 83 % (95-98); ABG PCO2 111 mmHg (35-45); ABG PO2 59 mmHg (85-104); ABG TCO2 > 50 mEq/L (20-26); Blood Gas VT 600 cc
[2019-05-09 05:30] LABS: ABG Base Excess 18 mEq/L (-2 to 3); ABG HCO3 49 mEq/L (21-27); ABG Oxygen Saturation 96 % (95-98); ABG PCO2 98 mmHg (35-45); ABG PH 7.31 pH Units (7.32-7.45); ABG PO2 94 mmHg (85-104); ABG TCO2 > 50 mEq/L (20-26); Blood Gas VT 600 cc
[2019-05-09] MEDS: *HR* Heparin 5,000 UNIT/ML VIAL SQ SCH ×3 (05:52→20:07)
[2019-05-09] MEDS ORDERED: Piperacillin/Tazobactam 3.375 GM VIAL ONE (08:05)
[2019-05-09] MEDS ORDERED: Metoprolol XL (24 HR) Succ 25 MG TAB.ER.24H PO ONE (08:05)
[2019-05-09] MEDS ORDERED: Gabapentin 300 MG CAPSULE ONE ×2 (08:05→15:00)
[2019-05-09] MEDS ORDERED: methylPREDNISolone 125 MG/2 ML VIAL ONE (08:05)
[2019-05-09] MEDS ORDERED: 0.9 % Sodium Chloride (Mini-Bag +) 100 ML IVBAG ONE (08:05)
[2019-05-09 13:52] LABS: ABG Base Excess 16 mEq/L (-2 to 3); ABG HCO3 46 mEq/L (21-27); ABG Oxygen Saturation 98 % (95-98); ABG PCO2 87 mmHg (35-45); ABG PH 7.33 pH Units (7.32-7.45); ABG PO2 120 mmHg (85-104); ABG TCO2 49 mEq/L (20-26); Blood Gas VT 600 cc
[2019-05-09 14:41] LABS: Hemoglobin 11.1 g/dL (12.9-16.9)
[2019-05-09 14:42] LABS: Basophils % 0.3 %; Hematocrit 40.8 % (37.5-50.1); Immature Granulocytes % 1.3 % (0-4); Lymphocytes # 0.3 K/mcL (0.6-4.6); Lymphocytes % 6.3 %; Mean Corpuscular HGB Conc 27.2 g/dL (31.6-35.5); Mean Corpuscular Hemoglobin 24.6 pg (28.0-33.3); Mean Corpuscular Volume 90.3 fL (83.0-100.0); Mean Platelet Volume 9.3 fL (9.4-12.4); Monocytes # 0.3 K/mcL (0.0-1.3); Monocytes % 8.5 %; Platelet Count 204 K/mcL (140-400); Red Blood Count 4.52 M/mcL (4.19-5.50); Red Cell Distribution Width 15.4 % (11.5-14.5); Segmented Neutrophils % 83.6 %
[2019-05-09] MEDS ORDERED: *HR* Heparin 5,000 UNIT/ML VIAL ONE (15:00)
[2019-05-09] MEDS ORDERED: clonazePAM 1 MG TABLET ONE (15:00)
[2019-05-09] MEDS ORDERED: Levalbuterol Neb 1.25 MG/3 ML ONE (15:00)
[2019-05-09 16:28] LABS: Neutrophils # 3.3 K/mcL (1.6-8.9)
[2019-05-09 16:29] LABS: Basophilic Stippling 1+ (Not Present); Hypochromasia Present (Not Present); Platelet Estimate Normal (Normal)
[2019-05-09] MEDS: Budesonide/Formoterol 160/4.5 1 PUFF INH IH SCH ×2 (16:44→21:44)
[2019-05-09] MEDS: clonazePAM 1 MG TABLET PO SCH ×4 (19:37→20:07)
[2019-05-09] MEDS: Gabapentin 300 MG CAPSULE PO SCH ×3 (19:39→20:07)
[2019-05-09] MEDS: Metoprolol XL (24 HR) Succ 25 MG TAB.ER.24H PO SCH (19:41)
[2019-05-09] MEDS: OLANZapine 10 MG TAB.RAPDIS PO SCH (20:07)
[2019-05-09] MEDS: traZODone 50 MG TABLET PO PRN (20:07)
[2019-05-09] MEDS: Acetaminophen 325 MG TABLET PO PRN (20:07)
[2019-05-09] MEDS ORDERED: Benzonatate 100 MG CAPSULE PO ONE (22:47)
[2019-05-10 02:45] LABS: Albumin 3.1 g/dL (3.5-5.7); Albumin/Globulin Ratio 1.2 (1.1-2.2); Aspartate Amino Transferase 30 Units/L (13-39); Bilirubin,Total 0.3 mg/dL (0.3-1.0); eGFR For African Americans > 60 (> 60); eGFR For Non-African Americans > 60 (> 60)
[2019-05-10 02:59] LABS: Chloride 93 mEq/L (98-107); Potassium 4.1 mEq/L (3.5-5.1); Sodium 144 mEq/L (136-145)
[2019-05-10 03:01] LABS: BUN/Creatinine Ratio 36 (6-26); Blood Urea Nitrogen 22 mg/dL (8-23); Carbon Dioxide > 45 mEq/L (23-29)
[2019-05-10 03:02] LABS: Alkaline Phosphatase 49 Units/L (34-104); Calcium 9.3 mg/dL (8.6-10.3); Glucose 138 mg/dL (70-105); Osmolality,Calculated 304 (280-300)
[2019-05-10 03:03] LABS: Alanine Aminotransferase 64 Units/L (7-52); Globulin 2.6 g/dL (2.4-3.5); Total Protein 5.7 g/dL (6.4-8.9)
[2019-05-10] MEDS: Levalbuterol Neb 1.25 MG/3 ML IH SCH ×4 (03:52→22:00)
[2019-05-10 04:42] LABS: Alanine Aminotransferase 50 Units/L (7-52); Albumin 2.9 g/dL (3.5-5.7); Albumin/Globulin Ratio 1.3 (1.1-2.2); Alkaline Phosphatase 42 Units/L (34-104); Aspartate Amino Transferase 20 Units/L (13-39); BUN/Creatinine Ratio 41 (6-26); Bilirubin,Total 0.3 mg/dL (0.3-1.0); Blood Urea Nitrogen 25 mg/dL (8-23); Calcium 9.1 mg/dL (8.6-10.3); Carbon Dioxide > 45 mEq/L (23-29); Chloride 96 mEq/L (98-107); Globulin 2.3 g/dL (2.4-3.5); Glucose 145 mg/dL (70-105); Magnesium 2.8 mg/dL (1.6-2.6); Osmolality,Calculated 303 (280-300); Potassium 4.1 mEq/L (3.5-5.1); Sodium 143 mEq/L (136-145); Total Protein 5.2 g/dL (6.4-8.9); Troponin I < 0.03 ng/mL (< 0.04); eGFR For African Americans > 60 (> 60); eGFR For Non-African Americans > 60 (> 60)
[2019-05-10 04:46] LABS: Mean Platelet Volume 9.3 fL (9.4-12.4)
[2019-05-10 04:47] LABS: Basophils % 0.2 %; Hematocrit 38.6 % (37.5-50.1); Hemoglobin 10.8 g/dL (12.9-16.9); Immature Granulocytes % 0.6 % (0-4); Lymphocytes # 0.3 K/mcL (0.6-4.6); Lymphocytes % 6.2 %; Mean Corpuscular Volume 89.4 fL (83.0-100.0); Monocytes # 0.4 K/mcL (0.0-1.3); Monocytes % 7.4 %; Neutrophils # 4.4 K/mcL (1.6-8.9); Platelet Count 199 K/mcL (140-400); Red Blood Count 4.32 M/mcL (4.19-5.50); Red Cell Distribution Width 15.2 % (11.5-14.5); Segmented Neutrophils % 85.6 %; White Blood Count 5.1 K/mcL (4.3-11.1)
[2019-05-10 05:27] LABS: Hypochromasia Present (Not Present); Platelet Estimate Decreased (Normal)
[2019-05-10] MEDS: *HR* Heparin 5,000 UNIT/ML VIAL SQ SCH ×3 (05:46→19:53)
[2019-05-10] MEDS ORDERED: clonazePAM 1 MG TABLET PO PRN (07:43)
[2019-05-10] MEDS: Metoprolol XL (24 HR) Succ 25 MG TAB.ER.24H PO SCH (08:00)
[2019-05-10] MEDS: Gabapentin 300 MG CAPSULE PO SCH ×3 (09:00→19:53)
[2019-05-10] MEDS ORDERED: DilTIAZem CD (24hr) 180 MG CAP.ER.24H PO SCH (09:00)
[2019-05-10] MEDS ORDERED: Metoprolol XL (24 HR) Succ 25 MG TAB.ER.24H PO SCH (09:11)
[2019-05-10] MEDS: methylPREDNISolone 125 MG/2 ML VIAL IVP SCH ×3 (09:13→23:56)
[2019-05-10] MEDS: Piperacillin/Tazobactam 3.375 GM in 0.9 % Sodium Chloride Mini Bag 100 ML IVPB SCH ×3 (09:15→23:55)
[2019-05-10] MEDS: Budesonide/Formoterol 160/4.5 1 PUFF INH IH SCH ×2 (10:15→22:00)
[2019-05-10] MEDS ORDERED: Naloxone 0.4 MG/ML INJ IVP PRN (11:19)
[2019-05-10] MEDS ORDERED: DilTIAZem CD (24hr) 180 MG CAP.ER.24H PO ONE (12:47)
[2019-05-10] MEDS ORDERED: Metoprolol XL (24 HR) Succ 25 MG TAB.ER.24H PO ONE (12:48)
[2019-05-10] MEDS: Acetaminophen 325 MG TABLET PO PRN ×2 (16:57→22:59)
[2019-05-10] MEDS: OLANZapine 5 MG TAB.RAPDIS PO SCH (19:53)
[2019-05-10] MEDS ORDERED: OLANZapine 5 MG TAB.RAPDIS PO SCH (21:00)
[2019-05-10] MEDS: clonazePAM 1 MG TABLET PO PRN (22:49)
[2019-05-11] MEDS: traZODone 50 MG TABLET PO PRN (00:32)
[2019-05-11] MEDS ORDERED: Ondansetron 4 MG/2 ML VIAL IVP ONE (02:43)
[2019-05-11] MEDS: Levalbuterol Neb 1.25 MG/3 ML IH SCH ×2 (03:14→10:34)
[2019-05-11] MEDS: Acetaminophen 325 MG TABLET PO PRN (05:33)
[2019-05-11] MEDS: *HR* Heparin 5,000 UNIT/ML VIAL SQ SCH ×3 (05:34→20:04)
[2019-05-11] MEDS: clonazePAM 1 MG TABLET PO PRN ×2 (08:08→15:25)
[2019-05-11] MEDS: methylPREDNISolone 125 MG/2 ML VIAL IVP SCH (08:08)
[2019-05-11] MEDS: DilTIAZem CD (24hr) 180 MG CAP.ER.24H PO SCH (08:08)
[2019-05-11] MEDS: Piperacillin/Tazobactam 3.375 GM in 0.9 % Sodium Chloride Mini Bag 100 ML IVPB SCH (08:09)
[2019-05-11] MEDS: Gabapentin 300 MG CAPSULE PO SCH ×3 (08:09→20:03)
[2019-05-11] MEDS: Metoprolol XL (24 HR) Succ 25 MG TAB.ER.24H PO SCH (08:09)
[2019-05-11 09:07] LABS: Hematocrit 38.6 % (37.5-50.1); Mean Corpuscular HGB Conc 28.5 g/dL (31.6-35.5); Mean Corpuscular Hemoglobin 24.6 pg (28.0-33.3); Mean Corpuscular Volume 86.4 fL (83.0-100.0); Mean Platelet Volume 9.2 fL (9.4-12.4); Platelet Count 237 K/mcL (140-400); Red Blood Count 4.47 M/mcL (4.19-5.50); Red Cell Distribution Width 15.8 % (11.5-14.5); White Blood Count 7.3 K/mcL (4.3-11.1)
[2019-05-11 09:28] LABS: Lymphocytes # 0.7 K/mcL (0.6-4.6); Monocytes # 0.3 K/mcL (0.0-1.3); Neutrophils # 6.3 K/mcL (1.6-8.9); Reactive Lymphocytes Present (Not Present); Smudge Cells Present (Not Present)
[2019-05-11 09:29] LABS: Platelet Estimate Normal (Normal); Stomatocytes 1+ (Not Present)
[2019-05-11 10:08] LABS: BUN/Creatinine Ratio 41 (6-26); Blood Urea Nitrogen 28 mg/dL (8-23); Calcium 8.9 mg/dL (8.6-10.3); Carbon Dioxide > 45 mEq/L (23-29); Chloride 94 mEq/L (98-107); Glucose 139 mg/dL (70-105); Magnesium 2.7 mg/dL (1.6-2.6); Osmolality,Calculated 310 (280-300); Phosphorous 3.1 mg/dL (2.7-4.5); Potassium 4.4 mEq/L (3.5-5.1); Sodium 146 mEq/L (136-145); eGFR For African Americans > 60 (> 60); eGFR For Non-African Americans > 60 (> 60)
[2019-05-11] MEDS: Budesonide/Formoterol 160/4.5 1 PUFF INH IH SCH (10:35)
[2019-05-11 13:53] LABS: VBG HCO3 51 mEq/L (21-27); VBG PCO2 80 mmHg (41-51); VBG PH 7.41 pH Units (7.32-7.42); VBG PO2 168 mmHg (25-50)
[2019-05-11] MEDS: Levalbuterol Neb 0.63 MG/3 ML IH SCH ×2 (15:47→21:42)
[2019-05-11] MEDS: Azithromycin 500 MG in 0.9 % Sodium Chloride 250 ML IVPB SCH (19:10)
[2019-05-11] MEDS: OLANZapine 5 MG TAB.RAPDIS PO SCH (20:03)
[2019-05-11] MEDS: Budesonide Neb 0.5 MG/2 ML IH SCH (21:42)
[2019-05-12] MEDS: Levalbuterol Neb 0.63 MG/3 ML IH SCH ×4 (03:44→22:18)
[2019-05-12] MEDS: *HR* Heparin 5,000 UNIT/ML VIAL SQ SCH ×3 (05:34→20:51)
[2019-05-12 06:00] LABS: Mean Platelet Volume 9.5 fL (9.4-12.4)
[2019-05-12 06:01] LABS: Basophils % 0.3 %; Hematocrit 35.7 % (37.5-50.1); Hemoglobin 10.3 g/dL (12.9-16.9); Lymphocytes # 0.7 K/mcL (0.6-4.6); Lymphocytes % 12.1 %; Mean Corpuscular HGB Conc 28.9 g/dL (31.6-35.5); Mean Corpuscular Hemoglobin 25.2 pg (28.0-33.3); Mean Corpuscular Volume 87.5 fL (83.0-100.0); Monocytes # 0.7 K/mcL (0.0-1.3); Monocytes % 11.1 %; Neutrophils # 4.6 K/mcL (1.6-8.9); Platelet Count 191 K/mcL (140-400); Red Blood Count 4.08 M/mcL (4.19-5.50); Red Cell Distribution Width 15.5 % (11.5-14.5); Segmented Neutrophils % 75.5 %; White Blood Count 6.1 K/mcL (4.3-11.1)
[2019-05-12 06:25] LABS: BUN/Creatinine Ratio 55 (6-26); Blood Urea Nitrogen 29 mg/dL (8-23); Calcium 8.6 mg/dL (8.6-10.3); Carbon Dioxide > 45 mEq/L (23-29); Chloride 103 mEq/L (98-107); Glucose 126 mg/dL (70-105); Magnesium 2.6 mg/dL (1.6-2.6); Osmolality,Calculated 301 (280-300); Potassium 4.7 mEq/L (3.5-5.1); Sodium 142 mEq/L (136-145); eGFR For African Americans > 60 (> 60); eGFR For Non-African Americans > 60 (> 60)
[2019-05-12 06:34] LABS: Thyroid Stimulating Hormone 0.038 mcIU/mL (0.340-5.600); Triiodothyronine (T3) Free 2.57 pg/mL (2.50-3.90)
[2019-05-12] MEDS: predniSONE 20 MG TABLET PO SCH (08:25)
[2019-05-12] MEDS: Gabapentin 300 MG CAPSULE PO SCH ×3 (08:25→20:36)
[2019-05-12] MEDS: clonazePAM 1 MG TABLET PO PRN ×2 (08:46→18:10)
[2019-05-12] MEDS: DilTIAZem CD (24hr) 180 MG CAP.ER.24H PO SCH (09:06)
[2019-05-12] MEDS: Metoprolol XL (24 HR) Succ 25 MG TAB.ER.24H PO SCH (09:06)
[2019-05-12] MEDS: Budesonide Neb 0.5 MG/2 ML IH SCH ×2 (10:03→22:18)
[2019-05-12] MEDS: Azithromycin 500 MG in 0.9 % Sodium Chloride 250 ML IVPB SCH (18:03)
[2019-05-12] MEDS: Acetaminophen 325 MG TABLET PO PRN (18:10)
[2019-05-12] MEDS: OLANZapine 5 MG TAB.RAPDIS PO SCH (20:36)
[2019-05-12] MEDS: *HR* OxyCODONE Immed Rel 5 MG TABLET PO PRN (20:51)
[2019-05-13] MEDS: Levalbuterol Neb 0.63 MG/3 ML IH SCH ×4 (03:44→21:26)
[2019-05-13 04:56] LABS: Basophils % 0.5 %; Red Cell Distribution Width 15.3 % (11.5-14.5)
[2019-05-13 04:58] LABS: Hematocrit 39.6 % (37.5-50.1); Hemoglobin 10.7 g/dL (12.9-16.9); Immature Granulocytes % 1.9 % (0-4); Lymphocytes # 0.8 K/mcL (0.6-4.6); Lymphocytes % 18.3 %; Mean Corpuscular Hemoglobin 24.4 pg (28.0-33.3); Mean Corpuscular Volume 90.4 fL (83.0-100.0); Mean Platelet Volume 9.3 fL (9.4-12.4); Monocytes # 0.5 K/mcL (0.0-1.3); Monocytes % 10.8 %; Neutrophils # 2.9 K/mcL (1.6-8.9); Platelet Count 196 K/mcL (140-400); Red Blood Count 4.38 M/mcL (4.19-5.50); Segmented Neutrophils % 68.5 %; White Blood Count 4.2 K/mcL (4.3-11.1)
[2019-05-13 05:20] LABS: BUN/Creatinine Ratio 40 (6-26); Blood Urea Nitrogen 25 mg/dL (8-23); Calcium 8.6 mg/dL (8.6-10.3); Carbon Dioxide > 45 mEq/L (23-29); Chloride 98 mEq/L (98-107); Glucose 132 mg/dL (70-105); Magnesium 2.4 mg/dL (1.6-2.6); Osmolality,Calculated 306 (280-300); Potassium 4.2 mEq/L (3.5-5.1); Sodium 145 mEq/L (136-145); eGFR For African Americans > 60 (> 60); eGFR For Non-African Americans > 60 (> 60)
[2019-05-13 05:23] LABS: Hypochromasia Present (Not Present); Platelet Estimate Normal (Normal); Reactive Lymphocytes Present (Not Present)
[2019-05-13] MEDS: *HR* Heparin 5,000 UNIT/ML VIAL SQ SCH ×3 (05:25→20:33)
[2019-05-13] MEDS: *HR* OxyCODONE Immed Rel 5 MG TABLET PO PRN ×2 (05:28→14:34)
[2019-05-13] MEDS: Gabapentin 300 MG CAPSULE PO SCH ×3 (08:20→20:32)
[2019-05-13] MEDS: acetaZOLAMIDE 250 MG TABLET PO SCH (08:20)
[2019-05-13] MEDS: predniSONE 20 MG TABLET PO SCH (08:20)
[2019-05-13] MEDS: DilTIAZem CD (24hr) 180 MG CAP.ER.24H PO SCH (08:21)
[2019-05-13] MEDS: Metoprolol XL (24 HR) Succ 25 MG TAB.ER.24H PO SCH (08:21)
[2019-05-13] MEDS: Budesonide Neb 0.5 MG/2 ML IH SCH ×2 (10:22→21:26)
[2019-05-13] MEDS: Piperacillin/Tazobactam 3.375 GM in 0.9 % Sodium Chloride Mini Bag 100 ML IVPB SCH ×2 (14:34→20:32)
[2019-05-13] MEDS: Azithromycin 250 MG TABLET PO SCH (14:34)
[2019-05-13] MEDS ORDERED: Perflutren Lipid Microsphere 1.3 ML in 0.9 % Sodium Chloride 8.7 ML IVP ONE (17:16)
[2019-05-13] MEDS: Acetaminophen 325 MG TABLET PO PRN (20:31)
[2019-05-13] MEDS: OLANZapine 5 MG TAB.RAPDIS PO SCH (20:31)
[2019-05-14] MEDS: Levalbuterol Neb 0.63 MG/3 ML IH SCH ×4 (03:22→22:07)
[2019-05-14 05:42] LABS: Red Cell Distribution Width 14.9 % (11.5-14.5)
[2019-05-14 05:44] LABS: Hematocrit 41.3 % (37.5-50.1); Hemoglobin 11.6 g/dL (12.9-16.9); Mean Corpuscular HGB Conc 28.1 g/dL (31.6-35.5); Mean Corpuscular Hemoglobin 25.1 pg (28.0-33.3); Mean Corpuscular Volume 89.2 fL (83.0-100.0); Mean Platelet Volume 9.4 fL (9.4-12.4); Platelet Count 215 K/mcL (140-400); Red Blood Count 4.63 M/mcL (4.19-5.50); White Blood Count 5.7 K/mcL (4.3-11.1)
[2019-05-14 05:45] LABS: VBG HCO3 35 mEq/L (21-27); VBG PCO2 73 mmHg (41-51); VBG PH 7.29 pH Units (7.32-7.42); VBG PO2 136 mmHg (25-50)
[2019-05-14 06:04] LABS: BUN/Creatinine Ratio 33 (6-26); Blood Urea Nitrogen 18 mg/dL (8-23); Calcium 9.1 mg/dL (8.6-10.3); Carbon Dioxide 35 mEq/L (23-29); Chloride 103 mEq/L (98-107); Glucose 121 mg/dL (70-105); Osmolality,Calculated 293 (280-300); Potassium 4.4 mEq/L (3.5-5.1); Sodium 140 mEq/L (136-145); eGFR For African Americans > 60 (> 60); eGFR For Non-African Americans > 60 (> 60)
[2019-05-14] MEDS: Acetaminophen 325 MG TABLET PO PRN ×2 (06:15→21:35)
[2019-05-14] MEDS: *HR* Heparin 5,000 UNIT/ML VIAL SQ SCH ×3 (06:17→21:36)
[2019-05-14] MEDS: Piperacillin/Tazobactam 3.375 GM in 0.9 % Sodium Chloride Mini Bag 100 ML IVPB SCH ×3 (06:18→21:31)
[2019-05-14] MEDS: predniSONE 20 MG TABLET PO SCH (09:26)
[2019-05-14] MEDS: acetaZOLAMIDE 250 MG TABLET PO SCH (09:26)
[2019-05-14] MEDS: Gabapentin 300 MG CAPSULE PO SCH ×3 (09:27→21:31)
[2019-05-14] MEDS: Metoprolol XL (24 HR) Succ 25 MG TAB.ER.24H PO SCH (09:27)
[2019-05-14] MEDS: DilTIAZem CD (24hr) 180 MG CAP.ER.24H PO SCH (09:27)
[2019-05-14] MEDS: Azithromycin 250 MG TABLET PO SCH (09:27)
[2019-05-14] MEDS: Budesonide Neb 0.5 MG/2 ML IH SCH ×2 (09:45→22:07)
[2019-05-14] MEDS: Benzonatate 100 MG CAPSULE PO PRN (19:02)
[2019-05-14] MEDS: OLANZapine 5 MG TAB.RAPDIS PO SCH (21:31)
[2019-05-14] MEDS: traZODone 50 MG TABLET PO PRN (21:35)
[2019-05-15] MEDS: Levalbuterol Neb 0.63 MG/3 ML IH SCH ×2 (03:57→10:06)
[2019-05-15] MEDS: Benzonatate 100 MG CAPSULE PO PRN (05:09)
[2019-05-15] MEDS: Piperacillin/Tazobactam 3.375 GM in 0.9 % Sodium Chloride Mini Bag 100 ML IVPB SCH ×2 (05:10→13:26)
[2019-05-15] MEDS: *HR* Heparin 5,000 UNIT/ML VIAL SQ SCH (05:14)
[2019-05-15 05:33] LABS: VBG HCO3 32 mEq/L (21-27); VBG PCO2 62 mmHg (41-51); VBG PH 7.33 pH Units (7.32-7.42); VBG PO2 191 mmHg (25-50)
[2019-05-15 05:34] LABS: Mean Platelet Volume 9.9 fL (9.4-12.4); Red Cell Distribution Width 15.1 % (11.5-14.5)
[2019-05-15 05:35] LABS: Hematocrit 44.3 % (37.5-50.1); Hemoglobin 12.8 g/dL (12.9-16.9); Mean Corpuscular HGB Conc 28.9 g/dL (31.6-35.5); Mean Corpuscular Hemoglobin 25.2 pg (28.0-33.3); Mean Corpuscular Volume 87.4 fL (83.0-100.0); Platelet Count 292 K/mcL (140-400); Red Blood Count 5.07 M/mcL (4.19-5.50); White Blood Count 8.9 K/mcL (4.3-11.1)
[2019-05-15 05:45] LABS: BUN/Creatinine Ratio 30 (6-26); Blood Urea Nitrogen 21 mg/dL (8-23); Calcium 9.2 mg/dL (8.6-10.3); Carbon Dioxide 33 mEq/L (23-29); Chloride 105 mEq/L (98-107); Glucose 120 mg/dL (70-105); Osmolality,Calculated 288 (280-300); Potassium 4.5 mEq/L (3.5-5.1); Sodium 137 mEq/L (136-145); eGFR For African Americans > 60 (> 60); eGFR For Non-African Americans > 60 (> 60)
[2019-05-15] MEDS: predniSONE 20 MG TABLET PO SCH (09:47)
[2019-05-15] MEDS: acetaZOLAMIDE 250 MG TABLET PO SCH (09:47)
[2019-05-15] MEDS: Metoprolol XL (24 HR) Succ 25 MG TAB.ER.24H PO SCH (09:47)
[2019-05-15] MEDS: Gabapentin 300 MG CAPSULE PO SCH (09:47)
[2019-05-15] MEDS: Acetaminophen 325 MG TABLET PO PRN (09:47)
[2019-05-15] MEDS: DilTIAZem CD (24hr) 180 MG CAP.ER.24H PO SCH (09:47)
[2019-05-15] MEDS: Budesonide Neb 0.5 MG/2 ML IH SCH (10:07)
[2019-05-15 11:30] VITALS: BP 124/80
== END 2019-05-15 13:56 | DRG 193 ==
LOC: ICNU → SUATTDRO 17:05 → 2ANU 05-10 16:36
PROVIDERS: ADMIT Pediatrics; ATTEND Internal Medicine

== ENCOUNTER 2021-07-23 03:01 | Inpatient (IN) ==
[2021-07-23] MEDS ORDERED: MOM Conc 10 ML UD.LIQ PO PRN (08:34)
[2021-07-23] MEDS ORDERED: *HR* Heparin 5,000 UNIT/ML VIAL IVP ONE (08:34)
[2021-07-23] MEDS ORDERED: *HR* Heparin 5,000 UNIT/ML VIAL IVP PRN (08:34)
[2021-07-23] MEDS ORDERED: Naloxone 0.4 MG/ML INJ IVP PRN (08:34)
[2021-07-23] MEDS ORDERED: Ondansetron 4 MG/2 ML VIAL IVP PRN (08:34)
[2021-07-23] MEDS ORDERED: Perflutren Lipid Microsphere 1.3 ML in 0.9 % Sodium Chloride 8.7 ML IVP PRN (08:39)
[2021-07-23] MEDS: Ipratropium/Albuterol Neb 3 ML IH SCH ×5 (09:27→23:38)
[2021-07-23 09:37] LABS: Hematocrit 38.8 % (37.5-50.1); Hemoglobin 11.4 g/dL (12.9-16.9); Mean Corpuscular HGB Conc 29.4 g/dL (31.6-35.5); Mean Corpuscular Hemoglobin 24.7 pg (28.0-33.3); Mean Platelet Volume 9.5 fL (9.4-12.4); Platelet Count 327 K/mcL (140-400); Red Blood Count 4.62 M/mcL (4.19-5.50); Red Cell Distribution Width 15.5 % (11.5-14.5); White Blood Count 19.5 K/mcL (4.3-11.1)
[2021-07-23 09:44] LABS: INR 1.3; Prothrombin Time 14.1 Seconds (9.4-12.1)
[2021-07-23 09:47] LABS: Activated Partial Thrombo Time 32.3 Seconds (26.0-36.0)
[2021-07-23 09:49] LABS: ABG Base Excess 10 mEq/L (-2 to 3); ABG HCO3 39 mEq/L (21-27); ABG Oxygen Saturation 98 % (95-98); ABG PCO2 74 mmHg (35-45); ABG PH 7.33 pH Units (7.32-7.45); ABG PO2 108 mmHg (85-104); ABG TCO2 41 mEq/L (20-26)
[2021-07-23 09:55] LABS: Magnesium 2.4 mg/dL (1.6-2.6); Phosphorous 3.5 mg/dL (2.7-4.5)
[2021-07-23] MEDS: Heparin 25,000UNIT/250ML 1/2NS 25,000 UNIT/250 ML IV.SOLN IVC SCH (10:02)
[2021-07-23] MEDS ORDERED: Furosemide 40 MG/4 ML VIAL IVP ONE (10:06)
[2021-07-23 10:12] LABS: BUN/Creatinine Ratio 33 (6-26); Blood Urea Nitrogen 20 mg/dL (8-23); Calcium 9.3 mg/dL (8.6-10.3); Carbon Dioxide 40 mEq/L (23-29); Chloride 96 mEq/L (98-107); Glucose 137 mg/dL (70-105); Osmolality,Calculated 293 (280-300); Potassium 4.4 mEq/L (3.5-5.1); Sodium 139 mEq/L (136-145); eGFR For African Americans > 60 (> 60); eGFR For Non-African Americans > 60 (> 60)
[2021-07-23 10:20] LABS: Lymphocytes # 1.2 K/mcL (0.6-4.6); Monocytes # 0.8 K/mcL (0.0-1.3); Neutrophils # 17.2 K/mcL (1.6-8.9); Platelet Estimate Normal (Normal)
[2021-07-23] MEDS: levoFLOXacin 750 MG/150 ML 750 MG/150 ML BAG IVPB SCH (10:26)
[2021-07-23] MEDS: GuaiFENesin/Dextromethorphan TABLET PO SCH ×2 (10:28→21:15)
[2021-07-23] MEDS: MethylPREDNISolone 40 MG/ML VIAL IVP SCH ×3 (10:30→23:12)
[2021-07-23 12:57] LABS: ABG Base Excess 12 mEq/L (-2 to 3); ABG HCO3 40 mEq/L (21-27); ABG Oxygen Saturation 95 % (95-98); ABG PCO2 65 mmHg (35-45); ABG PO2 78 mmHg (85-104); ABG TCO2 42 mEq/L (20-26); Blood Gas VT 450 cc
[2021-07-23 16:05] LABS: Adenovirus Not Detected (Not Detect); Coronavirus 229E Not Detected (Not Detect); Coronavirus HKU1 Not Detected (Not Detect); Coronavirus NL63 Not Detected (Not Detect); Coronavirus OC43 Not Detected (Not Detect); Human Metapneumovirus Not Detected (Not Detect); Human Rhinovirus/Enterovirus Not Detected (Not Detect); SARS-CoV-2 Not Detected (Not Detect)
[2021-07-23 16:11] LABS: Bordetella Pertussis Not Detected (Not Detect); Chlamydophila pneumoniae Not Detected (Not Detect); Influenza A Subtype 2009 H1 Not Detected (Not Detect); Influenza B Not Detected (Not Detect); Mycoplasma pneumoniae Not Detected (Not Detect); Parainfluenza Virus 1 Not Detected (Not Detect); Parainfluenza Virus 2 Not Detected (Not Detect); Parainfluenza Virus 3 Not Detected (Not Detect); Parainfluenza Virus 4 Not Detected (Not Detect); Respiratory Syncytial Virus Not Detected (Not Detect)
[2021-07-23] MEDS: Melatonin 3 MG TABLET PO PRN (21:15)
[2021-07-23] MEDS: *HR* Heparin 5,000 UNIT/ML VIAL IVP PRN (23:11)
[2021-07-24 03:22] LABS: Estimated Average Glucose 123 mg/dl; Hemoglobin A1C 5.9 %
[2021-07-24] MEDS: Ipratropium/Albuterol Neb 3 ML IH SCH ×6 (03:48→23:26)
[2021-07-24] MEDS ORDERED: Simethicone 80 MG TAB.CHEW PO PRN (07:50)
[2021-07-24 07:59] LABS: ABG Base Excess 14 mEq/L (-2 to 3); ABG HCO3 42 mEq/L (21-27); ABG Oxygen Saturation 100 % (95-98); ABG PCO2 64 mmHg (35-45); ABG PH 7.42 pH Units (7.32-7.45); ABG PO2 204 mmHg (85-104); ABG TCO2 44 mEq/L (20-26)
[2021-07-24] MEDS: DilTIAZem CD (24hr) 180 MG CAP.ER.24H PO SCH (08:32)
[2021-07-24] MEDS: GuaiFENesin/Dextromethorphan TABLET PO SCH ×2 (08:33→20:25)
[2021-07-24] MEDS: clonazePAM 1 MG TABLET PO SCH ×4 (08:33→20:24)
[2021-07-24] MEDS: Aspirin 81 MG TAB.CHEW PO SCH (08:33)
[2021-07-24] MEDS: MethylPREDNISolone 40 MG/ML VIAL IVP SCH ×3 (08:37→23:59)
[2021-07-24] MEDS: levoFLOXacin 750 MG/150 ML 750 MG/150 ML BAG IVPB SCH (08:37)
[2021-07-24] MEDS ORDERED: Furosemide 20 MG TABLET PO SCH (09:00)
[2021-07-24] MEDS ORDERED: Vancomycin 1,500 MG/265 ML IV.SOLN IVPB ONE (09:00)
[2021-07-24 09:12] LABS: Hematocrit 40.1 % (37.5-50.1); Hemoglobin 12.2 g/dL (12.9-16.9); Mean Corpuscular HGB Conc 30.4 g/dL (31.6-35.5); Mean Corpuscular Hemoglobin 24.9 pg (28.0-33.3); Red Blood Count 4.89 M/mcL (4.19-5.50); Red Cell Distribution Width 15.4 % (11.5-14.5); White Blood Count 15.2 K/mcL (4.3-11.1)
[2021-07-24 09:13] LABS: Basophils # 0.1 K/mcL (0.0-0.2); Basophils % 0.5 %; Eosinophils % 0.1 %; Immature Granulocytes % 3.5 % (0-4); Lymphocytes # 1.1 K/mcL (0.6-4.6); Lymphocytes % 7.3 %; Monocytes # 1.3 K/mcL (0.0-1.3); Monocytes % 8.5 %; Neutrophils # 12.2 K/mcL (1.6-8.9); Platelet Count 378 K/mcL (140-400); Segmented Neutrophils % 80.1 %
[2021-07-24] MEDS: Heparin 25,000UNIT/250ML 1/2NS 25,000 UNIT/250 ML IV.SOLN IVC SCH (09:21)
[2021-07-24] MEDS: Roflumilast [Daliresp] 500 MCG Tablet PO SCH (09:22)
[2021-07-24 09:37] LABS: BUN/Creatinine Ratio 43 (6-26); Blood Urea Nitrogen 30 mg/dL (8-23); Calcium 9.9 mg/dL (8.6-10.3); Carbon Dioxide 41 mEq/L (23-29); Chloride 92 mEq/L (98-107); Glucose 142 mg/dL (70-105); Magnesium 2.4 mg/dL (1.6-2.6); Osmolality,Calculated 299 (280-300); Phosphorous 3.4 mg/dL (2.7-4.5); Potassium 3.8 mEq/L (3.5-5.1); Sodium 140 mEq/L (136-145); eGFR For African Americans > 60 (> 60); eGFR For Non-African Americans > 60 (> 60)
[2021-07-24] MEDS: Budesonide/Formoterol 80/4.5 1 PUFF INH IH SCH ×2 (11:20→20:31)
[2021-07-24] MEDS: *HR* Heparin 5,000 UNIT/ML VIAL IVP PRN (13:36)
[2021-07-24] MEDS ORDERED: 0.9 % Sodium Chloride 1,000 ML IVC SCH (14:00)
[2021-07-24] MEDS: Vancomycin 1,500 MG/265 ML IV.SOLN IVPB SCH (20:29)
[2021-07-25] MEDS: Heparin 25,000UNIT/250ML 1/2NS 25,000 UNIT/250 ML IV.SOLN IVC SCH ×2 (00:01→20:50)
[2021-07-25] MEDS ORDERED: *HR* LORazepam 2 MG/ML VIAL IVP ONE (03:53)
[2021-07-25] MEDS: Ipratropium/Albuterol Neb 3 ML IH SCH ×6 (03:58→23:55)
[2021-07-25 04:35] LABS: Basophils % 0.3 %; Hematocrit 37.5 % (37.5-50.1); Hemoglobin 11.2 g/dL (12.9-16.9); Immature Granulocytes % 2.6 % (0-4); Lymphocytes # 0.7 K/mcL (0.6-4.6); Mean Corpuscular HGB Conc 29.9 g/dL (31.6-35.5); Mean Corpuscular Hemoglobin 24.5 pg (28.0-33.3); Mean Corpuscular Volume 81.9 fL (83.0-100.0); Mean Platelet Volume 10.5 fL (9.4-12.4); Monocytes # 0.9 K/mcL (0.0-1.3); Monocytes % 8.4 %; Neutrophils # 8.6 K/mcL (1.6-8.9); Platelet Count 307 K/mcL (140-400); Red Blood Count 4.58 M/mcL (4.19-5.50); Red Cell Distribution Width 15.5 % (11.5-14.5); Segmented Neutrophils % 81.7 %; White Blood Count 10.6 K/mcL (4.3-11.1)
[2021-07-25 04:54] LABS: BUN/Creatinine Ratio 37 (6-26); Blood Urea Nitrogen 22 mg/dL (8-23); Calcium 9.2 mg/dL (8.6-10.3); Carbon Dioxide 37 mEq/L (23-29); Chloride 97 mEq/L (98-107); Glucose 131 mg/dL (70-105); Magnesium 2.3 mg/dL (1.6-2.6); Osmolality,Calculated 293 (280-300); Phosphorous 3.2 mg/dL (2.7-4.5); Sodium 139 mEq/L (136-145); eGFR For African Americans > 60 (> 60); eGFR For Non-African Americans > 60 (> 60)
[2021-07-25] MEDS: Budesonide/Formoterol 80/4.5 1 PUFF INH IH SCH ×2 (07:22→20:02)
[2021-07-25] MEDS: levoFLOXacin 750 MG/150 ML 750 MG/150 ML BAG IVPB SCH (08:24)
[2021-07-25] MEDS: DilTIAZem CD (24hr) 180 MG CAP.ER.24H PO SCH (08:25)
[2021-07-25] MEDS: GuaiFENesin/Dextromethorphan TABLET PO SCH ×2 (08:25→21:33)
[2021-07-25] MEDS: MethylPREDNISolone 40 MG/ML VIAL IVP SCH ×2 (08:25→21:33)
[2021-07-25] MEDS: clonazePAM 1 MG TABLET PO SCH ×4 (08:25→21:34)
[2021-07-25] MEDS: Aspirin 81 MG TAB.CHEW PO SCH (08:26)
[2021-07-25] MEDS: Roflumilast [Daliresp] 500 MCG Tablet PO SCH (08:27)
[2021-07-25] MEDS: Vancomycin 1,500 MG/265 ML IV.SOLN IVPB SCH (10:14)
[2021-07-25] MEDS: Apixaban 5 MG TABLET PO SCH (21:33)
[2021-07-25] MEDS: Doxycycline 100 MG CAPSULE PO SCH (21:34)
[2021-07-26] MEDS: Ipratropium/Albuterol Neb 3 ML IH SCH ×3 (04:23→10:56)
[2021-07-26 06:04] LABS: BUN/Creatinine Ratio 36 (6-26); Blood Urea Nitrogen 22 mg/dL (8-23); Calcium 9.5 mg/dL (8.6-10.3); Carbon Dioxide 37 mEq/L (23-29); Chloride 98 mEq/L (98-107); Glucose 140 mg/dL (70-105); Magnesium 2.4 mg/dL (1.6-2.6); Osmolality,Calculated 292 (280-300); Phosphorous 3.5 mg/dL (2.7-4.5); Potassium 4.3 mEq/L (3.5-5.1); Sodium 138 mEq/L (136-145); eGFR For African Americans > 60 (> 60); eGFR For Non-African Americans > 60 (> 60)
[2021-07-26] MEDS: Budesonide/Formoterol 80/4.5 1 PUFF INH IH SCH ×2 (07:47→20:18)
[2021-07-26] MEDS: GuaiFENesin/Dextromethorphan TABLET PO SCH ×2 (08:08→20:13)
[2021-07-26] MEDS: Doxycycline 100 MG CAPSULE PO SCH ×2 (08:08→20:13)
[2021-07-26] MEDS: Aspirin 81 MG TAB.CHEW PO SCH (08:08)
[2021-07-26] MEDS: clonazePAM 1 MG TABLET PO SCH ×4 (08:08→20:13)
[2021-07-26] MEDS: Apixaban 5 MG TABLET PO SCH ×2 (08:09→20:13)
[2021-07-26] MEDS: DilTIAZem CD (24hr) 180 MG CAP.ER.24H PO SCH (08:09)
[2021-07-26] MEDS: levoFLOXacin 750 MG/150 ML 750 MG/150 ML BAG IVPB SCH (08:12)
[2021-07-26] MEDS: MethylPREDNISolone 40 MG/ML VIAL IVP SCH ×2 (08:12→20:12)
[2021-07-26] MEDS ORDERED: Ipratropium/Albuterol Neb 3 ML IH PRN (15:30)
[2021-07-26] MEDS: Melatonin 3 MG TABLET PO PRN (23:33)
[2021-07-27 07:03] VITALS: BP 123/74; PULSE 90; TEMP 98.1
[2021-07-27] MEDS: Budesonide/Formoterol 80/4.5 1 PUFF INH IH SCH (07:30)
[2021-07-27] MEDS: DilTIAZem CD (24hr) 180 MG CAP.ER.24H PO SCH (08:33)
[2021-07-27] MEDS: Doxycycline 100 MG CAPSULE PO SCH (08:33)
[2021-07-27] MEDS: GuaiFENesin/Dextromethorphan TABLET PO SCH (08:33)
[2021-07-27] MEDS: levoFLOXacin 750 MG/150 ML 750 MG/150 ML BAG IVPB SCH (08:34)
[2021-07-27] MEDS: Aspirin 81 MG TAB.CHEW PO SCH (08:34)
[2021-07-27] MEDS: clonazePAM 1 MG TABLET PO SCH (08:34)
[2021-07-27] MEDS: Apixaban 5 MG TABLET PO SCH (08:34)
[2021-07-27 08:45] VITALS: O2SAT 94
[2021-07-27] MEDS ORDERED: predniSONE 20 MG TABLET PO SCH (09:00)
[2021-07-27 19:04] LABS: Enterococcus faecalis by PCR Not Detected (Not Detect); Enterococcus faecium by PCR Not Detected (Not Detect); Staphylococcus aureus by PCR Not Detected (Not Detect); Staphylococcus by PCR Not Detected (Not Detect); mecA/C Methicillin-Resist Gene Not Detected (Not Detect)
[2021-07-27 19:06] LABS: A.calcoaceticus-baumannii cplx Not Detected (Not Detect); Bacteroides fragilis by PCR Not Detected (Not Detect); Candida albicans by PCR Not Detected (Not Detect); Candida auris by PCR Not Detected (Not Detect); Candida glabrata by PCR Not Detected (Not Detect); Candida krusei by PCR Not Detected (Not Detect); Candida parapsilosis by PCR Not Detected (Not Detect); Candida tropicalis by PCR Not Detected (Not Detect); Crypto. neoformans/gattii PCR Not Detected (Not Detect); Enterobacter cloacae Cmplx PCR Not Detected (Not Detect); Enterobacterales by PCR Not Detected (Not Detect); Escherichia coli by PCR Not Detected (Not Detect); Klebs. pneumoniae group by PCR Not Detected (Not Detect); Klebsiella aerogenes by PCR Not Detected (Not Detect); Klebsiella oxytoca by PCR Not Detected (Not Detect); Proteus by PCR Not Detected (Not Detect); Pseudomonas aeruginosa by PCR Not Detected (Not Detect); Salmonella species by PCR Not Detected (Not Detect); Serratia marcescens by PCR Not Detected (Not Detect); Staph epidermidis by PCR DETECTED (Not Detect); Staph lugdunensis by PCR Not Detected (Not Detect); Stenotrophomonas maltophilia Not Detected (Not Detect); Streptococcus agalactiae(B)PCR Not Detected (Not Detect); Streptococcus by PCR Not Detected (Not Detect); Streptococcus pneumoniae PCR Not Detected (Not Detect); Streptococcus pyogenes (A) PCR Not Detected (Not Detect)
[2021-08-01] MEDS ORDERED: Apixaban 5 MG TABLET PO SCH (21:00)
== END 2021-07-27 14:10 | DRG 871 ==
LOC: 3NENU → SUATTDRO 10:30
PROVIDERS: ADMIT Internal Medicine; ATTEND Internal Medicine